=== PATIENT | female | born 2000 | race African-American/Black ===

== ENCOUNTER 2022-05-12 16:57 | Emergency (ER) | payer SELFPAY ==
[~2022-05-12] VITALS: Ht 172.7 cm; Wt 78.0 kg
[2022-05-12 17:08] VITALS: BP 107/70
[2022-05-12] MEDS ORDERED: POLY10DR EACHEYE ×3 (18:28→19:40)
[2022-05-12] MEDS ORDERED: TETRACAINE 0.5% OPHTH DROPS 4ML RIGHTEYE ONE (18:30)
[2022-05-12] MEDS ORDERED: SODIUM CHLORIDE 0.9% IRRIG SOL 1,000 ML IR NR (18:30)
[2022-05-12] MEDS ORDERED: SODIUM CHLORIDE 0.9% IRRIG SOLUTION 1000ML IR ONE (18:30)
[2022-05-12] MEDS ORDERED: KETO5DRO80 RIGHTEYE (19:40)
== END 2022-05-12 19:30 | disposition home or self-care (01) ==
LOC: EDBD 16:57 → ER 17:35
DX: H10.12 Acute atopic conjunctivitis, left eye (principal)
CPT/HCPCS: 96360; 99283; J7030